=== PATIENT | male | born 2000 | race Caucasian/White ===

== ENCOUNTER 2019-10-31 12:35 | Emergency (ER) | payer BC ==
[2019-10-31 12:51] VITALS: TEMP 98.5
[2019-10-31] MEDS ORDERED: FLUORESCEIN STRIPS 1 MG STRIP BOTH EYES ONE (13:03)
[2019-10-31] MEDS ORDERED: PROPARACAINE 0.5% OPHTH DROPS 15 ML BTL RIGHT EYE STA (13:03)
--- NOTE | 2019-10-31 13:24 | ED ---
Eye Problem HPI - General Chief complaint: Eye Problems Stated complaint: FB eye Time Seen by Provider: 10/31/19 13:03 Source: patient Mode of arrival: ambulatory Limitations: no limitations - History of Present Illness Initial comments: 18-year-old male presenting today for chief complaint of right eye foreign body. Patient states he's grinding metal yesterday he states he went to bed he felt an irritating sensation in his right eye and try to rinse out the eye. Patient states he has noted a foreign body on the blue part of his eye. Patient states when he continued to have irritation today he came to the ER for removal of the foreign body. Patient denies any visual changes. Patient denies any significant photophobia. Denies redness, drainage, headache, nausea, vomiting, dizziness, rashes, penile discharge. Denies any other complaints. - Related Data Previous Rx's Medication Instructions Recorded Erythromycin Ophth Oint [Romycin 1 applic RIGHT EYE QID 3 Days #1 10/31/19 Ophth Oint] tube Allergies Allergy/AdvReac Type Severity Reaction Status Date / Time No Known Allergies Allergy Verified 10/31/19 12:47 Review of Systems ROS Statement: Those systems with pertinent positive or pertinent negative responses have been documented in the HPI. ROS Other: All systems not noted in ROS Statement are negative. Past Medical History Past Medical History: No Reported History History of Any Multi-Drug Resistant Organisms: None Reported Past Surgical History: No Surgical Hx Reported Past Psychological History: No Psychological Hx Reported Smoking Status: Never smoker Past Alcohol Use History: None Reported Past Drug Use History: None Reported General Exam - General Exam Comments Initial Comments: General: The patient is awake and alert, in no distress, and does not appear acutely ill. Eye: +3 mm pupils are equal, round and reactive to light, extra-ocular movements are intact. No nystagmus. There is normal conjunctiva bilaterally. No signs of icterus. IOP 9 OD. Small FB at the 5 oclock position in cornea. Ears, nose, mouth and throat: There are moist mucous membranes and no oral lesions. Neck: The neck is supple, there is no tenderness or JVD. Cardiovascular: There is a regular rate and rhythm. No murmur, rub or gallop is appreciated. Respiratory: Lungs are clear to auscultation, respirations are non-labored, breath sounds are equal. No wheezes, stridor, rales, or rhonchi. Gastrointestinal: Soft, non-distended, non-tender abdomen without masses or organomegaly noted. There is no rebound or guarding present. Musculoskeletal: Normal ROM, no tenderness. Strength 5/5. Sensation intact. Radial pulses equal bilaterally 2+. Neurological: A&O x 3. CN II-XII intact grossly, There are no obvious motor or sensory deficits. Coordination appears grossly intact. Speech is normal. Skin: Skin is warm and dry and no rashes or lesions are noted. Psychiatric: Cooperative, appropriate mood & affect, normal judgment. Limitations: no limitations Course Vital Signs 10/31/19 12:48 Temperature 98.5 F Pulse Rate 70 Respiratory 18 Rate Blood Pressure 116/70 O2 Sat by Pulse 98 Oximetry Medical Decision Making - Medical Decision Making 18yo male presenting for ocular FB. VA occurred after FB removed. No blurred vision prior. (-) sidels sign. IOP 9. FB removed, rust ring remains. Attempted removal-mild amount remains. Pt started on erythromycin, tetanus updated patient will be discharged with follow up with Dr. Eaton for remaining rust ring removal. Patient agreeable to care plan and discharge. Dr Valera agreeable to care plan. Disposition Clinical Impression: Foreign body, Foreign body of right eye Disposition: HOME SELF-CARE Condition: Good Instructions (If sedation given, give patient instructions): Eye Foreign Body (ED) Additional Instructions: Please use medication as discussed. Please follow-up with Dr. Eaton tomorrow for rust ring removal. Please return to emergency room if the symptoms increase or worsen or for any other concerns. Prescriptions: Erythromycin Ophth Oint [Romycin Ophth Oint] 1 applic RIGHT EYE QID 3 Days #1 tube Is patient prescribed a controlled substance at d/c from ED?: No Referrals: None,Stated [Primary Care Provider] - 1-2 days Delfino Eaton MD [STAFF PHYSICIAN] - 1-2 days Time of Disposition: 13:24
[2019-10-31] MEDS ORDERED: DIPH,PERTUS(ACELL)TETVAC-LF 0.5 ML VIAL IM ONE (13:27)
[2019-10-31 14:03] VITALS: BP 120/67; PULSE 65; RESP 20
--- NOTE | 2019-11-02 07:09 | CDI ---
Dear Margret Valera, PAC Please provide eye foreign body removal complete procedure. Thank you, Cornelius Rich Carding Doubler If you have any questions, please contact Mixing Picker Tender at [phone] [facility]
== END 2019-10-31 14:05 | disposition home or self-care (01) ==
LOC: EC 12:35
DX: T15.01XA Foreign body in cornea, right eye, initial encounter (principal); Z23 Encounter for immunization; Y93.89 Activity, other specified
CPT/HCPCS: 65220; 90471; 90715; 99283

== ENCOUNTER → 2020-01-18 | Outpatient (CLI) | payer BC ==
[2020-01-18 18:26] LABS: African American GFR (CKD) 99.6 (60.0-200.0); Albumin 4.8 g/dL (3.80-4.90); Albumin/Globulin Ratio 1.92 (1.60-3.17); Anion Gap 3.6 mmol/L (4.00-12.00); BUN/Creat Ratio 16.67 Ratio (12.00-20.00); Calcium 9.5 mg/dL (8.7-10.3); Carbon Dioxide 25.4 mmol/L (21.6-31.8); Globulin 2.5 g/dL (1.6-3.3); Non-African American GFR(CKD) 85.9 (60.0-200.0); Potassium 4.8 mmol/L (3.5-5.5); Total Bilirubin 1.4 mg/dL (0.2-1.2); Total Protein 7.3 g/dL (6.2-8.2)
== END | disposition home or self-care (01) ==
LOC: LABWHC1 10:07
PROVIDERS: ATTEND Pediatrics
DX: Z00.00 Encounter for general adult medical examination without abnormal findings (principal)
CPT/HCPCS: 36415; 80053

== ENCOUNTER → 2020-02-10 | Outpatient (CLI) | payer BC ==
[2020-02-10 17:17] LABS: Cholesterol 187 mg/dL (0-200); Triglycerides <50.0 mg/dL (0.0-149.0)
[2020-02-10 19:52] LABS: Hemoglobin A1C 4.8 % (4.0-6.0)
== END | disposition home or self-care (01) ==
LOC: LABWHC1 08:47
PROVIDERS: ATTEND Pediatrics
DX: Z00.00 Encounter for general adult medical examination without abnormal findings (principal)
CPT/HCPCS: 36415; 80061; 83036; 84443